=== PATIENT | female | born 1975 | race Caucasian/White ===

== ENCOUNTER → 2020-11-22 | Outpatient (REF) | payer OTHER | LOC: M WUC 12:11 | PROVIDERS: ATTEND Nurse Practitioner Family | DX: L03.114 Cellulitis of left upper limb (principal) ==

== ENCOUNTER 2023-05-26 02:48 | Emergency (ER) | payer BC, OTHER ==
[~2023-05-26] VITALS: Ht 165.1 cm; Wt 69.8 kg
[2023-05-26 03:20] LABS: BASO % 0.4 % (0.0-1.0); EOS % 0.3 % (0.0-3.0); HEMATOCRIT 37.1 % (36.0-47.0); HEMOGLOBIN 12.5 g/dl (12.0-15.5); LYMPH # 0.7 10^3/uL (1.5-5.0); LYMPH % 6.3 % (24.0-44.0); MEAN CORPUSCULAR HEMOGLOBIN 30.3 pg (27.0-33.0); MEAN CORPUSCULAR HGB CONC 33.7 g/dl (32.0-36.5); MONO # 0.4 10^3/uL (0.0-0.8); MONO % 3.3 % (2.0-8.0); NEUTROPHILS # 10.2 10^3/uL (1.5-8.5); NEUTROPHILS % 89.4 % (36.0-66.0); PLATELET COUNT, AUTOMATED 303 10^3/uL (150-450); RED BLOOD COUNT 4.12 10^6/uL (4.00-5.40); WHITE BLOOD COUNT 11.4 10^3/uL (4.0-10.0)
[2023-05-26 03:43] LABS: LIPASE 28 U/L (12-53)
[2023-05-26 03:48] LABS: ALBUMIN 4.3 G/DL (3.2-5.2); ALKALINE PHOSPHATASE 29 U/L (46-116); ALT/SGPT 29 U/L (7.0-40); AST/SGOT 39 U/L (<34); BILIRUBIN,DIRECT 0.2 MG/DL (<0.4); BILIRUBIN,TOTAL 0.7 MG/DL (0.3-1.2); BLOOD UREA NITROGEN 24 MG/DL (9-23); CALCIUM LEVEL 8.8 MG/DL (8.5-10.1); CARBON DIOXIDE LEVEL 25 MMOL/L (20-31); CHLORIDE LEVEL 108 MMOL/L (98-107); CREATININE FOR GFR 0.74 MG/DL (0.55-1.30); GLOMERULAR FILTRATION RATE > 60.0 (>58); GLUCOSE, FASTING 95 MG/DL (60-100); POTASSIUM SERUM 4.3 MMOL/L (3.5-5.1); SODIUM LEVEL 139 MMOL/L (136-145); TOTAL PROTEIN 6.4 G/DL (5.7-8.2)
[2023-05-26] MEDS ORDERED: MORPHINE 2 MG/ML 1ML VIAL IV ONE ×2 (06:40→08:35)
[2023-05-26] MEDS ORDERED: NS 1,000 ML IV ONE (06:40)
[2023-05-26] MEDS ORDERED: ONDANSETRON 4MG 2ML VIAL IV ONE (06:40)
[2023-05-26] MEDS ORDERED: ISOVUE-370 76% 100ML VIAL As Ordered ONE (07:08)
[2023-05-26 08:06] LABS: RSV AMPLIFICATION NEGATIVE (NEGATIVE)
[2023-05-26] MEDS ORDERED: MIRA3350 PO (09:25)
[2023-05-26] MEDS ORDERED: COLA100C5 PO (09:25)
[2023-05-26] MEDS ORDERED: LACTULOSE 20GM/30ML SYRUP UDC PO ONE (09:30)
[2023-05-26 10:01] VITALS: BP 107/68; TEMP 98.4; O2SAT 99
== END 2023-05-26 10:04 | disposition home or self-care (01) ==
LOC: M ED 02:48
DX: K59.00 Constipation, unspecified (principal); Z87.42 Personal history of other diseases of the female genital tract; Z88.6 Allergy status to analgesic agent; Z91.013 Allergy to seafood; Z79.818 Long term (current) use of other agents affecting estrogen receptors and estrogen levels; Z79.83 Long term (current) use of bisphosphonates
CPT/HCPCS: 74177; 80048; 80076; 81001; 83690; 85025; 87631; 96361; 96374; 96375; 96376; 99284; J2405; Q9967